=== PATIENT | female | born 1955 | race African-American/Black ===

== ENCOUNTER 2020-08-02 15:00 | Outpatient (CLI) | payer MEDICARE | END 2020-08-02 15:01 | disposition home or self-care (01) | LOC: NAV RAD 15:00 | PROVIDERS: ATTEND Family Medicine | DX: M79.644 Pain in right finger(s) (principal); M79.645 Pain in left finger(s) ==

== ENCOUNTER 2023-10-29 16:41 | Outpatient (CLI) | payer MEDICARE | END 2023-10-29 16:42 | disposition home or self-care (01) | LOC: NAV RAD 16:41 | PROVIDERS: ATTEND Student in an Organized Health Care Education/Training Program | DX: M25.551 Pain in right hip (principal) ==

== ENCOUNTER 2024-02-22 15:05 | Outpatient (CLI) | payer MEDICARE | END 2024-02-22 15:06 | disposition home or self-care (01) | LOC: NAV RAD 15:05 | PROVIDERS: ATTEND Student in an Organized Health Care Education/Training Program | DX: M25.562 Pain in left knee (principal) ==